=== PATIENT | male | born 2000 | race Caucasian/White ===

== ENCOUNTER → 2022-11-03 | Outpatient (CLI) | payer BC ==
--- NOTE | 2022-11-04 08:32 | CA ---
Exercise Stress Test Report Name: Ralph Baires Exam Date: 11/03/2022 09:02 Exam Location: [place] Stress Ht (in): 76 Wt (lb): 275 BSA: 2.54 Ordering Phys: Ruiz Esteban MD Referring Phys: SCOOBY,, Technologist: Dipesh Dillard Age: 21 Gender: M : 2000 Procedure CPT: Indications: R07.89, R06.02 ICD-10 Codes: Patient History: CHEST PAIN, DIFFICULTY IN BREATHING, FAMILY HX OF HEART DISEASE Medications: PROPANOLOL,,,,, Meds past 24 hrs: Pretest Chest Pain: STRESS TEST Kirk Protocol Exercise Duration (min:sec): 09:[address] Depressions (mm): Angina Score: Knight Score: Resting HR (bpm): 93 Peak HR (bpm): 175 Resting BP (mmHg): 114 / 64 Peak BP (mmHg): 157 / 53 MPHR: 197 Target HR: 167 % MPHR: 89 METS: 11.2 Total Dose: Peak Dose: Atropine: Double Product: 93220 BP Response: Stress Termination: TARGET HR REACHED/MAX EXERTION Stress Symptoms: NO SYMPTOMS Stress Summary: ECG ANALYSIS Resting ECG: Sinus rhythm. Normal ECG with HR 84 beats per min Stress ECG: No evidence of ischemia by ST segment analysis. No arrhythmias or significant ectopic rhythm noted during the stress test. CONCLUSIONS Treadmill ECG stress test Good exercise tolerance for age, exercised for 9 minutes 30 seconds, achieved 89% of maximum predicted heart rate, achieved is 11.2 METS Normal hemodynamic and heart rate response to exercise Normal resting ECG Nonischemic ECG response to exercise Dr Onur Pena (Electronically Signed) Final Date: 03 November 2022 12:40
== END | disposition home or self-care (01) ==
LOC: RADNMMAIN 08:38
PROVIDERS: ATTEND Family Medicine
DX: R07.89 Other chest pain (principal); R06.02 Shortness of breath
CPT/HCPCS: 93017